=== PATIENT | male | born 1985 | race Caucasian/White ===

== ENCOUNTER 2016-06-12 18:59 | Emergency (ER) | payer OTHER ==
[~2016-06-12] VITALS: Ht 182.9 cm; Wt 101.0 kg
[2016-06-12 19:09] VITALS: BP 119/59; PULSE 91; RESP 18; TEMP 98.7; O2SAT 98
--- NOTE | 2016-06-12 20:01 | RADHPO ---
EXAM DATE/TIME: 06/12/2016 19:33 [place] COMPARISON: No previous studies available for comparison. INDICATIONS : Left knee pain. MEDICAL HISTORY : None. SURGICAL HISTORY : None. ENCOUNTER: Initial ACUITY: 1 day PAIN SCORE: 10/10 LOCATION: Left knee FINDINGS: There is no evidence of joint effusion or fracture. Mineralization is normal. There is moderate prepa tellar and infrapatellar soft tissue swelling. CONCLUSION: Soft tissue swelling. No acute bony findings Robert Alvarez MD on June 12, 2016 at 19:58 Board Certified Radiologist. This report was verified electronically.
[2016-06-12] MEDS ORDERED: TRAM50TA PO (20:30)
[2016-06-12] MEDS ORDERED: IBUP800T23 PO (20:30)
--- NOTE | 2016-06-12 20:30 | PD ---
HPI Chief Complaint: Injury Time Seen by Provider: 19:00 Travel History International Travel<30 days: No Contact w/Intl Traveler<30days: No Traveled to known affect area: No History of Present Illness HPI 31-year-old male presents the emergency Department with sudden onset left pain and weakness. Patient was playing basketball when he came down and twisted and felt a "pop". He dropped to the ground, and was unable to extend his knee. Fire department came and placed a knee splint on it and his friend brought him here for evaluation. Patient denies numbness, tingling, or breaks in the skin. He states a deformity when he tries to extend his leg there is a different in his anterior lower knee. Pain is about a 4/10. He has no known drug allergies. PFSH Past Medical History Migraines: Yes Tetanus Vaccination: > 5 Years Influenza Vaccination: No Social History Alcohol Use: Yes (Socially) Tobacco Use: No Substance Use: No Allergies-Medications (Allergen,Severity, Reaction): Coded Allergies: No Known Allergies (Unverified , 06/12/16) Reported Meds & Prescriptions Reported Meds & Active Scripts Active Tramadol (Tramadol HCl) 50 Mg Tab 50 Mg PO Q6H PRN Ibuprofen 800 Mg Tab 800 Mg PO Q8H PRN Review of Systems Except as stated in HPI: all other systems reviewed are Neg General / Constitutional: No: Fever Eyes: No: Visual changes HENT: No: Headaches Cardiovascular: No: Chest Pain or Discomfort Respiratory: No: Shortness of Breath Gastrointestinal: No: Abdominal Pain Genitourinary: No: Dysuria Musculoskeletal: No: Pain Skin: No Rash Neurologic: No: Weakness Psychiatric: No: Depression Endocrine: No: Polydipsia Hematologic/Lymphatic: No: Easy Bruising Physical Exam Narrative GENERAL: Patient appears in mild to moderate distress. SKIN: Warm and dry. Normal color. Normal turgor. No signs of trauma, no abrasions, no open wounds. HEAD: Atraumatic. Normocephalic. EYES: Pupils equal and round. No scleral icterus. No injection or drainage. ENT: No nasal bleeding or discharge. Mucous membranes pink and moist. Pharynx is clear. Airway is patent. NECK: Trachea midline. Neck is supple nontender. CARDIOVASCULAR: Regular rate and rhythm. RESPIRATORY: No accessory muscle use. Clear to auscultation. Breath sounds equal bilaterally. MUSCULOSKELETAL: Extremities without clubbing, cyanosis, or edema. Patient has deformity distal to the patella with flexion consistent with distal patellar tendon rupture. No obvious laxities noted with varus and valgus distress. Exam is limited to the patient's discomfort. NEUROLOGICAL: Awake and alert. No obvious cranial nerve deficits. Motor grossly within normal limits. Five out of 5 muscle strength in the arms and legs. Normal speech. PSYCHIATRIC: Appropriate mood and affect; insight and judgment normal. Data Data Last Documented VS Vital Signs Date Time Temp Pulse Resp B/P Pulse Ox O2 Delivery O2 Flow Rate FiO2 06/12/16 19:09 98.7 91 18 119/59 98 Orders Knee, Ltd (1 Or 2vws) (06/12/16 19:20) Ice/Cold Pack (06/12/16 19:20) Splint Or Brace Apply/Monitor (06/12/16 19:43) Crutches (06/12/16 19:43) Immobilizer Knee 20 Inch (06/12/16 ) [facility] Medical Decision Making Medical Screen Exam Complete: Yes Emergency Medical Condition: Yes Differential Diagnosis Left knee sprain. Patella fracture. Patellar tendon rupture. Narrative Course Patient is not stable at time of exam. X-rays of the left knee are obtained showing no fracture. Call was placed to Dr. Reardon, orthopedic on-call, and the patient is discussed. Patient is felt to have a distal patellar tendon rupture. Patient is placed in a knee immobilizer and crutches with follow-up with Dr. Reardon to follow-up for surgical repair. Patient is given ibuprofen 800 mg 3 times daily with food #30. Patient is given tramadol 1 every 6 hours when necessary pain #20. Patient is to wear the knee immobilizer at all times and use crutches until seen by Dr. Reardon. Patient is to ice the area as much as possible. Patient can return to emergency department worsening symptoms if necessary. Diagnosis Primary Impression: Rupture of left patellar tendon Qualified Code: S86.812A - Rupture of left patellar tendon, initial encounter Referrals: Jose Luis Reardon MD call for appointment Patient Instructions: General Instructions Departure Forms: School Release Please excuse from school until (free text option): Limited use of left leg until cleared by orthopedic surgeon. Additional Instructions: Patient is felt to have a distal patellar tendon rupture. Patient is placed in a knee immobilizer and crutches with follow-up with Dr. Reardon to follow-up for surgical repair. Patient is given ibuprofen 800 mg 3 times daily with food #30. Patient is given tramadol 1 every 6 hours when necessary pain #20. Patient is to wear the knee immobilizer at all times and use crutches until seen by Dr. Reardon. Patient is to ice the area as much as possible. Patient can return to emergency department worsening symptoms if necessary. Med/Other Pt SpecificInfo: Prescription(s) given Scripts Tramadol 50 Mg Tab50 Mg PO Q6H PRN (PAIN) #20 TAB Prov:Gurinder Pastor MD 06/12/16 Ibuprofen 800 Mg Rtl325 Mg PO Q8H PRN (Pain/Inflammation) #30 TAB Prov:Gurinder Pastor MD 06/12/16 Disposition: 01 DISCHARGE HOME Condition: Stable Robbin Headley June 12, 2016 20:30
== END 2016-06-12 20:51 | disposition home or self-care (01) ==
LOC: PHEFT 18:59
DX: S76.112A Strain of left quadriceps muscle, fascia and tendon, initial encounter (principal); X50.1XXA Overexertion from prolonged static or awkward postures, initial encounter; Y93.67 Activity, basketball
CPT/HCPCS: 73560; 99283; E0113; L1830

== ENCOUNTER 2017-03-29 14:41 | Emergency (ER) | payer OTHER ==
[~2017-03-29] VITALS: Ht 182.9 cm; Wt 103.9 kg
[~2017-03-29 14:41] MED LIST: DEXAMETHASONE SOD PHOS 4 MG/ML VIAL IV ONE; IBUP1TAB7 PO; LACTATED RINGER'S 1000 ML INJ 1,000 ML IV ONE; LIDOCAINE HCL 1% PF 5 ML SYRINGE OTHER ONE; ONDANSETRON HCL 4 MG/2 ML VIAL IV PUSH ONE; PROPOFOL 200 MG/20 ML AMP IV ONE; TRAM50TA PO; ceFAZolin INJ 1,000 MG VIAL IV ONE
[2017-03-29 14:44] VITALS: BP 136/73; PULSE 67; RESP 16; TEMP 97.4; O2SAT 100
--- NOTE | 2017-03-29 15:14 | PD ---
HPI Chief Complaint: Laceration/Skin Injury Time Seen by Provider: 14:53 Travel History International Travel<30 days: No Contact w/Intl Traveler<30days: No Traveled to known affect area: No History of Present Illness HPI This is a 31-year-old male here with a laceration to his right hand fourth and fifth digit over the mid phalange palmar aspect. He sustained a cut using a kitchen knife prior to arrival. He is unable to fully flex the digits. He reports normal sensation. Symptom severity is moderate. Pain is aggravated by movement. No alleviating factors. [facility] Past Medical History Medical History: Denies Significant Hx Immunizations Current: Yes Migraines: Yes Social History Alcohol Use: Yes (Socially) Tobacco Use: No (never) Substance Use: No Allergies-Medications (Allergen,Severity, Reaction): Coded Allergies: No Known Allergies (Unverified Adverse Reaction, Unknown, 03/29/17) Reported Meds & Prescriptions Reported Meds & Active Scripts Active No Active Prescriptions or Reported Medications Review of Systems Except as stated in HPI: all other systems reviewed are Neg Physical Exam Narrative GENERAL: Alert and well-appearing 31-year-old male SKIN: Warm and dry. See hand documentation below. HEAD: Normocephalic. EYES:No injection or drainage. NECK: Supple CARDIOVASCULAR: Regular rate and rhythm RESPIRATORY: Breath sounds equal bilaterally. No accessory muscle use. GASTROINTESTINAL: Abdomen soft, non-tender, nondistended. MUSCULOSKELETAL: No cyanosis. Right hand: 2 lacerations each measuring 1 cm of the fourth and fifth digit over the mid phalange palmar aspect. Patient is unable to fully flex the DIP joints. He reports normal sensation. Brisk cap refill. Data Data Last Documented VS Vital Signs Date Time Temp Pulse Resp B/P (MAP) Pulse Ox O2 Delivery O2 Flow Rate FiO2 03/29/17 16:58 62 16 136/69 (91) 98 Room Air 03/29/17 14:44 97.4 Orders Orders NPO (03/29/17 15:29) Basic Metabolic Panel (Bmp) (03/29/17 15:36) Complete Blood Count With Diff (03/29/17 15:36) Iv Access Insert/Monitor (03/29/17 15:36) Electrocardiogram (03/29/17 15:36) Cefazolin 2 Gm Premix (Ancef 2 Gm Premix (03/29/17 16:45) Potassium Chloride (Kcl) (03/29/17 16:45) Labs Laboratory Tests Test 03/29/17 15:45 White Blood Count 4.3 TH/MM3 Red Blood Count 4.63 MIL/MM3 Hemoglobin 13.7 GM/DL Hematocrit 40.3 % Mean Corpuscular Volume 87.0 FL Mean Corpuscular Hemoglobin 29.6 PG Mean Corpuscular Hemoglobin Concent 34.0 % Red Cell Distribution Width 12.0 % Platelet Count 250 TH/MM3 Mean Platelet Volume 7.2 FL Neutrophils (%) (Auto) 59.9 % Lymphocytes (%) (Auto) 30.6 % Monocytes (%) (Auto) 7.2 % Eosinophils (%) (Auto) 1.1 % Basophils (%) (Auto) 1.2 % Neutrophils # (Auto) 2.6 TH/MM3 Lymphocytes # (Auto) 1.3 TH/MM3 Monocytes # (Auto) 0.3 TH/MM3 Eosinophils # (Auto) 0.0 TH/MM3 Basophils # (Auto) 0.1 TH/MM3 CBC Comment DIFF FINAL Differential Comment Blood Urea Nitrogen 12 MG/DL Creatinine 1.20 MG/DL Random Glucose 90 MG/DL Calcium Level 9.3 MG/DL Sodium Level 137 MEQ/L Potassium Level 3.4 MEQ/L Chloride Level 103 MEQ/L Carbon Dioxide Level 26.9 MEQ/L Anion Gap 7 MEQ/L Estimat Glomerular Filtration Rate 70 ML/MIN MDM Medical Decision Making Medical Screen Exam Complete: Yes Emergency Medical Condition: Yes Differential Diagnosis Finger laceration, Tendon laceration, ligament injury Narrative Course This is a 31-year-old male with laceration to the right fourth and fifth digit with suspected flexor tendon laceration. Extremity/digit is neurovascularly intact. Case discussed with on-call hand surgeon Dr. Jenkins who is going to take the patient to the OR for repair at 7 PM. She was placed nothing by mouth. CBC, BMP and EKG obtained for preop preparation Diagnosis Primary Impression: Flexor tendon laceration, finger, open wound Qualified Codes: S56.129A - Laceration of flexor muscle, fascia and tendon of unspecified finger at forearm level, initial encounter; S61.209A - Unspecified open wound of unspecified finger without damage to nail, initial encounter Scripts No Active Prescriptions or Reported Meds Sarah Talbert Mar 29, 2017 15:14
[2017-03-29 15:54] LABS: AUTOMATED NEUTROPHIL # 2.6 TH/MM3 (1.8-7.7); BASOPHIL # 0.1 TH/MM3 (0-0.2); BASOPHIL % 1.2 % (0.0-2.0); EOSINOPHIL % 1.1 % (0.0-4.0); HEMATOCRIT 40.3 % (39.0-51.0); HEMOGLOBIN 13.7 GM/DL (13.0-17.0); LYMPH % 30.6 % (9.0-44.0); LYMPHOCYTE # 1.3 TH/MM3 (1.0-4.8); MEAN CORPUSCULAR HEMOGLOBIN 29.6 PG (27.0-34.0); MEAN PLATELET VOLUME 7.2 FL (7.0-11.0); MONO % 7.2 % (0.0-8.0); MONOCYTE # 0.3 TH/MM3 (0-0.9); NEUT % 59.9 % (16.0-70.0); PLATELET COUNT 250 TH/MM3 (150-450); RED BLOOD COUNT 4.63 MIL/MM3 (4.50-5.90); WHITE BLOOD COUNT 4.3 TH/MM3 (4.0-11.0)
[2017-03-29 16:05] LABS: BICARBONATE 26.9 MEQ/L (21.0-32.0); CALCIUM 9.3 MG/DL (8.5-10.1)
[2017-03-29 16:09] LABS: CREATININE 1.2 MG/DL (0.60-1.30)
[2017-03-29] MEDS ORDERED: ceFAZolin 2 GM PREMIX 50 ML IV ONE (16:45)
[2017-03-29] MEDS ORDERED: POTASSIUM CHLORIDE 20 MEQ CONTROLLED RELEASE TAB PO ONE (16:45)
[2017-03-29 16:58] VITALS: BP 136/69; PULSE 62; RESP 16; O2SAT 98
[2017-03-29] MEDS ORDERED: fentaNYL CITRATE 250 MCG/5 ML AMP ONE (18:06)
[2017-03-29] MEDS ORDERED: BUPIVACAINE HCL PF 0.5% 30 ML VIAL ONE (18:15)
[2017-03-29] MEDS ORDERED: LIDOCAINE HCL 2% 50 ML VIAL ONE (18:15)
[2017-03-29] MEDS ORDERED: NEOMYCIN/POLYMYXIN 1 ML G.U. IRRIGANT ONE ×2 (18:16→20:21)
[2017-03-29] MEDS ORDERED: MIDAZOLAM HCL 2 MG/2 ML VIAL ONE (18:22)
[2017-03-29] MEDS ORDERED: FAMOTIDINE 20 MG/2 ML VIAL ONE (18:22)
[2017-03-29] MEDS ORDERED: LACTATED RINGER'S 1000 ML IV PRN (20:15)
[2017-03-29] MEDS ORDERED: POVIDONE IODINE 5% (ANTISEPSIS KIT) 4 APPLICATIONS EACH NARE PRN (20:15)
[2017-03-29] MEDS ORDERED: METOPROLOL TARTRATE 25 MG TAB PO PRN (20:15)
[2017-03-29] MEDS ORDERED: CHLORHEXIDINE GLUCONATE 2 % 1 PACK (2 CLOTHS) TOPICAL PRN (20:15)
[2017-03-29] MEDS ORDERED: SODIUM CHLORID 0.9% 500 ML IV PRN (20:15)
[2017-03-29] MEDS ORDERED: BACITRACIN TOP OINT 15 GM TUBE ONE (21:15)
[2017-03-29 21:40] VITALS: PULSE 71
--- NOTE | 2017-03-29 21:46 | PD.OP ---
Operative Report Preoperative Diagnosis: (1) flexor digitorum profundus tendon laceration right ring finger (2) flexor digitorum profundus tendon laceration right little finger zone II Postoperative Diagnosis: (1) flexor digitorum profundus tendon laceration right little finger (2) flexor digitorum profundus tendon laceration right ring finger zone II Procedure: exploration repair of flexor digitorum profundus zone II right ring and little fingers Anesthesia: general Surgeon: Andrae Jenkins [employer] Furnace Operator(s): radha Operation and Findings: complete laceration FDP zone II right ring and little fingers Andrae Jenkins MD Mar 29, 2017 21:46
[2017-03-29 22:00] VITALS: PULSE 91
[2017-03-29] MEDS ORDERED: ACETAMINOPHEN/HYDROcodone 325 MG/7.5 MG TAB ONE (22:09)
[2017-03-29] MEDS ORDERED: CEPH-460 PO (22:19)
[2017-03-29 22:20] VITALS: BP 127/53; PULSE 84; RESP 16; TEMP 98.4; O2SAT 97
--- NOTE | 2017-03-30 08:14 | MB ---
cc: MILY MANZO MD DATE OF CONSULTATION 03/29/2017 REASON FOR CONSULTATION REASON FOR CONSULTATION Right hand laceration. HISTORY OF PRESENT ILLNESS The patient is a 31-year-old [id number] male who presented to the ED with complaints of laceration to the right ring and little fingers this afternoon. The patient states he was cutting with a kitchen knife and accidentally lacerated the right ring and little fingers. The patient complains of inability to flex the ring and little fingers. Denies any numbness. He also complains of pain in the lacerations. PAST MEDICAL/SURGICAL HISTORY Nonsignificant. PHYSICAL EXAMINATION Examination of the right hand reveals a laceration over the volar aspect of the little finger just distal to the proximal interphalangeal joint crease in a transverse fashion measuring about 1 cm. Another laceration is noted distal to the proximal interphalangeal joint along the ulnar aspect in a transverse fashion measuring about 0.5 cm. The patient has mild oozing from the region. The patient has intact flexion at the PIP joint of the ring and little finger. No active flexion is noted at the DIP joint of the little and the ring fingers. He has intact capillary refill. He has intact distal sensation. No other injuries are noted. He has full flexion of the middle and the index fingers. ASSESSMENT A 31-year-old male with flexor digitorum profundus laceration, zone II, right little and ring fingers. PLAN Will take the patient emergently for exploration and repair of flexor tendon and right little and ring fingers. The patient has been explained the risks and benefits of the procedure. He has also been explained about the post-op recovery including the need for splinting and hand therapy. Mily Manzo MD SE/REBECA /6:33 PM /8:03 AM
--- NOTE | 2017-03-30 13:59 | EKG ---
Date Performed: 03/29/2017 Time Performed: 15:49:39 PTAGE: 31 years EKG: Sinus rhythm WITH SINUS ARRHYTHMIA NONSPECIFIC T-WAVE ABNORMALITY BORDERLINE ECG NO PREVIOUS TRACING 03/29/2017 1549 DOCTOR: Christie Kim Interpretating Date/Time 03/30/2017 13:57:38
--- NOTE | 2017-04-01 14:17 | MP ---
cc: MILY MANZO DATE OF SURGERY: 04/01/2017. PREOPERATIVE DIAGNOSIS: Flexor digitorum profundus tendon laceration zone 2 right ring and right little fingers. POSTOPERATIVE DIAGNOSIS: Flexor digitorum profundus laceration zone 2 right ring and right little fingers. OPERATIVE PROCEDURE PERFORMED: Exploration and repair, flexor digitorum profundus zone 2 right ring and right little finger. SURGEON: Mily Manzo M.D. ANESTHESIA: General. ESTIMATED BLOOD LOSS: Minimal. TOURNIQUET TIME: 114 minutes at 250 mmHg. PLAN: To the post-anesthesia care unit stable. INDICATIONS FOR THE PROCEDURE: The patient is a 31-year-old right hand dominant male who presented to the emergency department with complaints of laceration to the right little and the ring fingers while cutting chicken this evening. The patient complained of inability to flex the distal joint of the right ring and little fingers. On examination, she had a laceration over the volar aspect of the middle phalanx region of the right ring and little fingers with no active flexion of the digit distal interphalangeal joint. The patient was clinically diagnosed with flexor digitorum profundus right ring and little finger zone 2 and was consented for exploration and repair of the flexor tendons right ring and little fingers. The patient was explained the risks and benefits of the procedure. DESCRIPTION OF THE PROCEDURE IN DETAIL: The patient was brought to the operating room under general anesthesia. The right upper extremity was thoroughly prepped and draped. The incision site was marked in the mid axial fashion incorporating the laceration measuring about 2 cm proximally and distally. After limb exsanguination, the tourniquet was inflated to 250 mmHg. Attention was initially directed to the ring finger. Incision was made over the proposed incision site. The skin flaps were elevated. On exploration. there was complete laceration of the flexor digitorum profundus and zone 2 of the A3 veronica region. The proximal stump was identified at the proximal interphalangeal joint region and the distal stump was distal to the A4 veronica. The incision was then extended across the pulp region of the ring finger. Skin flaps were elevated exposing the distal stump. Thorough wash was given. Using 3-0 Supramid stitch, a suture repair was carried out. Initially the sutures were placed through the proximal stump. The sutures were then threaded underneath the A4 veronica of the ring finger and brought to the distal aspect of the laceration to the distal stump. Keeping the finger flexed, a repair of the flexor tendon was carried out using Tsuge using 3-0 Supramid with four strands crossing the repair site. The repair was then reinforced with 6-0 Prolene in a continuous circumferential fashion. The finger was put through a range of motion and the repair was holding well and the tendon edges were well-approximated. Prior to repair, a thorough wash of the wounds was carried out. Attention was then directed to the little finger. Incision was made in the mid axial fashion incorporating the laceration which was in a transverse fashion. Skin flaps were elevated. The distal neurovascular bundle was protected out of harm's way. There was complete laceration of the flexor digitorum profundus of the A3 level. The proximal stump was identified of the PIP joint. The distal stump was retracted just distal to the A4 veronica and sedation was made to proceed with the incision extension across the pulp region. Thick flaps were elevated. Throughout the procedure, the neurovascular bundle was protected. The proximal stump was then threaded through the A4 veronica. The repair was carried out just distal to the A4 veronica in a Tsuge fashion using 3-0 Supramid with four strands crossing the repair site. The repair was then reinforced with 6-0 Prolene in a continuous circumferential fashion. The finger was put through passive range of motion. The sutures were holding well and the tendon edges were well-approximated and were sliding freely through the A4 veronica. Thorough wash of the wound was carried out. The tourniquet was deflated. Total tourniquet time was 114 minutes. Skin flaps were then approximated using 5-0 nylon in a horizontal mattress interrupted fashion. Xeroform and bacitracin dressing applied. About 8 mL of local anesthesia containing a mixture of 2% lidocaine and 0.1% Marcaine was injected as a digital block. A bulky hand dressing was applied which was held in place by [facility] and a dorsal block splint was applied keeping the wrist in flexion and extending to the fingertips keeping the fingers in flexion. He had good distal circulation at the end of the procedure. The patient was recovered and sent to the recovery room in stable condition. He will follow up with me in two to three days time for a dressing and a splint change. MD LAN Henderson /9:46 PM /2:00 PM
== END 2017-03-29 22:27 | disposition home or self-care (01) ==
LOC: PHEFT 14:41
DX: S66.124A Laceration of flexor muscle, fascia and tendon of right ring finger at wrist and hand level, initial encounter (principal); S66.126A Laceration of flexor muscle, fascia and tendon of right little finger at wrist and hand level, initial encounter; I49.9 Cardiac arrhythmia, unspecified; R94.31 Abnormal electrocardiogram [ECG] [EKG]; W26.0XXA Contact with knife, initial encounter
CPT/HCPCS: 26356; 80048; 85025; 93005; 96365; 99284; J0690; J2250; J3010; J7120; J1100; J2405